=== PATIENT | female | born 1985 ===

== ENCOUNTER 2025-01-17 05:12 | Day surgery (SDC) | payer OTHER ==
[2025-01-09 08:44] LABS: BASO % 0.5 % (0.1-1.2); EOS # 0.13 (0.04-0.54); EOS % 1.3 % (0.7-7.0); HEMATOCRIT 40.9 % (34.1-44.9); HEMOGLOBIN 13.5 g/dL (11.2-15.7); LYMPH # 1.74 (1.18-3.74); LYMPH % 17.6 % (19.3-53.1); MEAN CORPUSCULAR HEMOGLOBIN 27.7 pg (25.6-32.2); MONO # 0.59 (0.24-0.82); NEUT # 7.33 (1.56-6.13); NEUT % 74.3 % (34.0-71.1); PLATELET COUNT 400 K/uL (163-369); RED BLOOD COUNT 4.88 M/uL (3.93-5.22); RED CELL DISTRIBUTION WIDTH 11.9 % (11.6-14.4)
[2025-01-09 08:45] LABS: URINE APPEARANCE Clear; URINE BILIRRUBIN Negative (NEGATIVE); URINE BLOOD Large; URINE COLOR Yellow; URINE GLUCOSE Negative (NEGATIVE); URINE KETONE Negative (NEGATIVE); URINE LEUKOCYTE Negative; URINE NITRATE Negative; URINE PROTEIN Trace (NEGATIVE)
[2025-01-09 08:47] LABS: URINE BACTERIA 586.1 uL (0.0-1933); URINE EPITHELIAL CELLS 14.4 uL (0.0-38.8); URINE RBC 192.6 uL (0.0-20.8); URINE WBC 11.5 uL (0.0-23.2)
[2025-01-09 09:15] LABS: INR 1.03; PARTIAL THROMBOPLASTIN TIME 28.8 SECONDS (22.0-34.0); PROTHROMBIN TIME 11.2 SECONDS (9.0-11.5); URINE CAST 0.14 uL (0.0-1.40)
[2025-01-09 09:34] LABS: ALBUMIN 4.1 gm/dL (3.4-5.0); CALCIUM 8.8 mg/dL (8.5-10.1); CREATININE SERUM 0.59 mg/dL (0.55-1.02); GFR 114.69; PHOSPHOROUS 3.2 mg/dL (2.5-4.9); POTASSIUM 4.31 mEq/L (3.5-5.1)
[~2025-01-17 05:12] MED LIST: GLIMEPIRIDE2 MG; LIPITOR20 MG; METFORMIN HCL500 M3; TRICOR48 MG PO
[2025-01-17] MEDS ORDERED: CEFAZOLIN SODIUM 1,000 MG VIAL ONE (07:02)
[2025-01-17] MEDS ORDERED: POVIDONE-IODINE 118 ML BOTT TOP ONE (07:34)
[2025-01-17] MEDS ORDERED: LIDOCAINE HCL 1%/EPINEPHRINE 20ML VIAL IJ ONE (07:35)
[2025-01-17] MEDS ORDERED: CEPHALEXIN500 MG PO (10:14)
== END 2025-01-17 11:20 | disposition home or self-care (01) ==
LOC: CIR.AMB 05:12
PROVIDERS: ATTEND Otolaryngology Otology & Neurotology
DX: H61.302 Acquired stenosis of left external ear canal, unspecified (principal); D23.22 Other benign neoplasm of skin of left ear and external auricular canal